=== PATIENT | male | born 1990 | race Caucasian/White ===

== ENCOUNTER 2024-05-08 10:42 | Outpatient (REF) | payer OTHER, SELFPAY | END 2024-05-08 10:43 | disposition home or self-care (01) | LOC: HO.HOSX 10:42 | PROVIDERS: Visit Provider Orthopaedic Surgery | DX: M79.661 Pain in right lower leg (principal) | CPT/HCPCS: 73590; 99202 ==

== ENCOUNTER 2024-05-08 14:57 | Outpatient (AMB) | payer OTHER, SELFPAY ==
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
[2024-05-08 15:12] VITALS: BMI 31.6
== END 2024-05-08 15:25 | disposition home or self-care (01) ==
PROVIDERS: Visit Provider Orthopaedic Surgery
DX: M79.661 Pain in right lower leg (principal)
CPT/HCPCS: 99203; G2211

== ENCOUNTER 2024-07-09 08:42 | Outpatient (REF) | payer OTHER, SELFPAY ==
--- NOTE | ~2024-07-09 | XR_ITS ---
EXAMINATION: XR TIBIA FIBULA 2 VIEWS RIGHT HISTORY: S82.201A - Unspecified fracture of shaft of right tibia, initial encounter COMPARISON: Comparison is made with the prior examination dated 05/08/2024. FINDINGS: AP and lateral views of the right tibia and fibula are submitted. Osseous mineralization is normal. Again seen is an intramedullary garima in the tibia maintaining the previously seen and a fracture of the midshaft in anatomic alignment. The fracture line is less visible. There is also slightly greater callus formation noted, consistent with healing. The visualized knee and ankle joint spaces are preserved. The soft tissues are unremarkable. XR/XR tibia fibula RT 2V IMPRESSION: Healing internally fixed fracture of the midshaft of the tibia. Electronically signed by: Noah Reilly MD 07/10/2024 03:47 PM DANIAL
--- OUTSIDE RECORDS SUMMARY | 2024-07-10 09:24 | XMS_ITS ---
Author [facility] Address [address] [place] [address] Care Team Providers Care Branding Machine Tender Name Role Phone Danial Garcia Primary Care Provider Danial Garcia Unavailable Unavailable REASON FOR VISIT Meds MEDICATIONS Medication SIG (Take, Route, Frequency, Duration) Notes Start Date End Date Status Vitamin D3 125 MCG (5000 UT) 1 capsule Orally Once a day for 90 Days 04/30/2024 Active Encounters Encounter Location Date Provider Diagnosis [facility] [address] [place] [address] 05/02/2024 Danial Garcia Vitamin D deficiency E55.9 ASSESSMENTS Encounter Date Diagnosis Assessment Notes Treatment Notes Treatment Clinical Notes 05/02/2024 Vitamin D deficiency (ICD-10 - E55.9) PLAN OF TREATMENT Medication Medication Name Sig Start Date Stop Date Notes Vitamin D3 125 MCG (5000 UT) 1 capsule O rally Once a day for 90 Days 04/30/2024 Next Appt Details Provider Name:Danial caceres, 07/15/2024 04:45:00 PM, [address] [place] [address], [phone],
--- OUTSIDE RECORDS SUMMARY | 2024-07-10 09:24 | XMS_ITS ---
Author Organization [facility] Address [address] [place] [address] Care Team Providers Care Tare Worker Name Role Phone Danial Garcia Primary Care [...] days 10/07/2022 Active Vitamin D3 1.25 MG (25211 UT) 1 capsule Orally Once a day for 90 Days 04/30/2024 Active Ipratropium [place]rtle 0.06 % 2 sprays in e ach [...] Encounters Encounter Location Date Provider Diagnosis [facility] [address] 04/30/2024 Danial Garcia Annual physical exam Z00.00 [...] system. There are likely to be multiple teradata solution architect inaccuracies despite chart review. PLAN OF TREATMENT Medication Medication Name Sig Start Date Stop Date Notes Vitamin D3 1.25 MG (54070 UT) 1 capsule Orally Once a day for 90 Days 04/30/2024 Debrox 6.5 % 5 drops into affecte d ear Otic Twice a day for 7 days 04/30/2024 Treatment Notes Assessment Notes Other This chart has been transcribed by a computerized dictation system. There are likely to be multiple teradata solution architect inaccuracies despite chart review. Next Appt Details Follow Up: 3 Months, Monday next week, Reason: Follow-up,Ear irrigation Provider Name:Danial Pena Watson caceres, 07/15/2024 04:45:00 PM, [address] [place] [address], [phone], Progress Notes * Examination Category Sub-Category Detail Notes General Examination GENERAL APPEARANCE: in no ac kot[place] distress, well developed, well nourished HEAD: normocephalic, [...]
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
--- OUTSIDE RECORDS SUMMARY | 2024-07-10 09:24 | XMS_ITS ---
Author Organization Jose Perdue Address [address] [place] [address] Care Team Providers Care Assistant Editor Name Role Phone Danial Garcia Primary Care Provider Danial Garcia Unavailable Unavailable REASON FOR VISIT PT Order Encounters Encounter Location Date Provider Diagnosis Jose Perdue [address] [place] [address] 02/23/20 24 Danial Garcia PLAN OF TREATMENT Next Appt Details Provider Name:Danial caceres, 07/15/2024 04:45:00 PM, [address] [place], [address],
--- OUTSIDE RECORDS SUMMARY | 2024-07-10 09:24 | XMS_ITS | Clinical Summary ---
Author Organization [facility] [employer] [facility] Address [address] [place] [address] Care Team Providers Care Surveillance Systems Engineer Name Role Phone Pcp, No Primary Care Provider [phone] Social History Tobacco Use Types Packs/Day Years [...] Adults 18 yrs or above (or HM Modifier)([facility]) 2006 Hepatitis C Virus Infection in Adolescents and Adults: Screening (or Modifier) ([facility]) 2006 SDOH Screening Reminder: Ursula ually for all adults ([facility]) 2006 Tobacco Smoking Cessation: i n Adults excluding Women: Behavioral and Pharmacotherapy Interventions ([facility]) 2006 DTaP/Tdap/Td Vaccines ([facility]) (1 - Tdap) 2007 Lipid Screening: Once for Me n aged 20 to 35 yrs ([facility]) 2008 Flu Vaccination: Yearly for ages 18mos through 64 years (or Modifier)([facility]) 01/11/2024 COVID-19 Vaccine Screening: Initial Series and Booster Status ([facility]) ( - 2023- season) 2024 Lipid Screening: Every 5 yrs for Men aged 35+ (or HM Modifier) ([facility]) 2024 Zoster/Shingles Vaccine Seri es Screening: Adults aged 18+ yrs (or HM Modifiers)([facility]) (1 of 2) 2038 Pneumococcal Vaccination Scr eening: Pts 0-19 & 19-64 yrs of age ([facility]) Aged Out No longer eligible based on patient's age to complete this topic Medical Devices Not on file Insurance [facility] PL[facility] Care Teams Surveillance Systems Engineer Relationship Specialty Start Date End Date Pcp, No PCP - General Family Medicine 03/03/22
== END 2024-07-09 08:43 | disposition home or self-care (01) ==
LOC: HO.HOSX 08:42
PROVIDERS: Visit Provider Orthopaedic Surgery
DX: S82.201A Unspecified fracture of shaft of right tibia, initial encounter for closed fracture (principal)
CPT/HCPCS: 73590; 99212

== ENCOUNTER 2024-07-09 15:04 | Outpatient (AMB) | payer OTHER, SELFPAY ==
--- NOTE | 2024-07-09 15:16 | MHC.OFFVIS ---
Vital Signs 07/09/24 15:20 Height 5 ft 8 in Weight 208 lb BMI 31.6 Intake Visit Reasons: OV Rt tibia IMN 02/04/[address] [place] Intake Note: Justin is a 34 year old male who presents today for follow up after undergoing a right tibia IMN on 02/04/24 in [place]. He reports minimal discomfort in his right ankle. He denies any right lower leg pain. He has been weight-bearing as tolerated. He does not take any medicines for his discomfort. Allergies No Known Allergies Allergy (Verified 07/09/24 15:25) Medication List - Last Reconciled 07/09/24 by Ricardo Gibson MD fluoxetine 10 mg PO DAILY [facility] Social History Alcohol intake: never Patient Tobacco Use Status: Never used Tobacco Current occupational status: employed Current occupation: Employment business support coordinator Physical Exam Vital Signs: BMI result Body Mass Index 31.6 Extrem Other: Right lower extremity examination shows that the surgical incisions are well healed, no erythema, no focal tenderness over his tibia, no discomfort with range of motion of his knee or ankle Results Reviewed Results Reviewed: X-rays of the patient's right tibia and fibula taken today show cortical bone crossing the previous fracture site, no evidence of hardware loosening Assessment & Plan Assessment & Plan (1) Right tibial fracture: Code(s): S82.201A - Unspecified fracture of shaft of right tibia, initial encounter for closed fracture Category: Medical Plan Mr. العلي continues to do well after undergoing intramedullary nailing of his right tibia fracture on 02/04/2024. At this point he is clinically and radiographically healed. He can gradually progress to activities as tolerated. He will follow up with me on an as-needed basis should any questions or concerns arise. I spent 21 minutes in reviewing the patient's records and imaging studies, seeing the patient and documenting in the medical record. Orders: Orders XR tibia fibula RT 2V Today S82.201A - Unspecified fracture of shaft of right tibia, initial encounter for closed fracture Coding Level of Care Code Est Pt Level 3 (66542) Complex EM visit Add On G2211 Diagnoses Right tibial fracture S82.201A
[2024-07-09 15:20] VITALS: BMI 31.6
--- OUTSIDE RECORDS SUMMARY | 2024-07-09 16:03 | XMS_ITS ---
Author Organization [facility] Address [address] [place] [address] Care Team Providers Care Organizational Research Consultant Name Role Phone Danial Garcia Primary Care Provider [phone] Danial Garcia Unavailable Unavailable REASON FOR VISIT PT Order Encounters Encounter Location Date Provider Diagnosis [facility] [address] [place] [address] 02/23/20 24 Danial Garcia PLAN OF TREATMENT Next Appt Details Provider Name:Danial caceres, 07/15/2024 04:45:00 PM, [address] [place], [address],
--- OUTSIDE RECORDS SUMMARY | 2024-07-09 16:03 | XMS_ITS | Clinical Summary ---
Author Organization [facility]] lin Address [address] [place] [address] Care Team Providers Care Assembly Line Inspector Name Role Phone Pcp, No Primary Care Provider [phone] Social History Tobacco Use Types Packs/Day Years Used Date Smoking Tobacco: Never Assessed Sex and Gender Information Value Date Recorded Sex Assigned at Not on file Legal Sex Male 8:12 AM EST Gender Identity Not on file Sexual Orientation Not on file Plan of Treatment Health Maintenance Due Date Last Done Comments Depression: Screening Annual ly using PHQ-2/9 in Adults 18 yrs or above (or HM Modifier)([facility]) 2006 Hepatitis C Virus Infection in Adolescents and Adults: Screening (or Modifier) ([facility]) 2006 SDOH Screening Reminder: Ursula ually for all adults ([facility]) 2006 Tobacco Smoking Cessation: i n Adults excluding Women: Behavioral and Pharmacotherapy Interventions ([facility]) 2006 DTaP/Tdap/Td Vaccines ([facility]) (1 - Tdap) 2007 Lipid Screening: Once for Me n aged 20 to 35 yrs ([facility]) 2008 Flu Vaccination: Yearly for ages 18mos through 64 years (or Modifier)([facility]) 01/11/2024 COVID-19 Vaccine Screening: Initial Series and Booster Status ([facility]) ( - 2023- season) 2024 Lipid Screening: Every 5 yrs for Men aged 35+ (or HM Modifier) ([facility]) 2024 Zoster/Shingles Vaccine Seri es Screening: Adults aged 18+ yrs (or HM Modifiers)([facility]) (1 of 2) 2038 Pneumococcal Vaccination Scr eening: Pts 0-19 & 19-64 yrs of age ([facility]) Aged Out No longer eligible based on patient's age to complete this topic Medical Devices Not on file Insurance [facility] PL[facility] Care Teams Assembly Line Inspector Relationship Specialty Start Date End Date Pcp, No PCP - General Family Medicine 03/03/22
--- OUTSIDE RECORDS SUMMARY | 2024-07-09 16:03 | XMS_ITS ---
Author [facility] Address [address] [place] [address] Care Team Providers Care Shutdown Coordinator Name Role Phone Danial Garcia Primary Care Provider Danial Garcia Unavailable Unavailable REASON FOR VISIT (IN OFFICE), Annual Complete Physical Exam MEDICATIONS Medication SIG (Take, Route, Frequency, Duration) Notes Start Date End Date Status FLUoxetine HCl 10 MG TAKE 1 CAPSULE BY M OUT EVERY DAY for 90 Active Sucralfate 1 GM/10ML 10 ml on an empty s tomach Orally Twice a day for 14 days 10/07/2022 Active Vitamin D3 1.25 MG (23684 UT) 1 capsule Orally Once a day for 90 Days 04/30/2024 Active Ipratropium [place] 0.06 % 2 sprays in e ach nostril Nasally Three times a day for 30 days 09/20/2021 Active LORazepam 1 MG 1 tablet as needed O rally Once a day Active Famotidine 40 MG 1 tablet at bedtime Orally Once a day Active Debrox 6.5 % 5 drops into affecte d ear Otic Twice a day for 7 days 04/30/2024 Active Pantoprazole Sodium 40 MG 1 tablet Orall y Once a day Active VITAL SIGNS Height 68 in 04/30/2024 Weight 208 lbs 04/30/2024 BMI 31.62 kg/m2 04/30/2024 Blood pressure systolic 124 mm Hg 04/30/20 24 Blood pressure diastolic 72 mm Hg 024 Heart Rate 78 /min 04/30/2024 Encounters Encounter Location Date Provider Diagnosis [facility] [address] 04/30/2024 Danial Garcia Annual physical exam Z00.00 ; Vitamin D deficiency E55.9 and Bilateral impacted cerumen H61.23 ASSESSMENTS Encounter Date Diagnosis Assessment Notes Treatment Notes Treatment Clinical Notes 04/30/2024 Annual physical exam (ICD-10 - Z00.00) 04/30/2024 Vitamin D deficiency (ICD-10 - E55.9) 04/30/2024 Bilateral impacted cerumen (ICD-10 - H61.23) 04/30/2024 Other This chart has been transcribed by a computerized dictation system. There are likely to be multiple patternmaker wood inaccuracies despite chart review. PLAN OF TREATMENT Medication Medication Name Sig Start Date Stop Date Notes Vitamin D3 1.25 MG (75921 UT) 1 capsule Orally Once a day for 90 Days 04/30/2024 Debrox 6.5 % 5 drops into affecte d ear Otic Twice a day for 7 days 04/30/2024 Treatment Notes Assessment Notes Other This chart has been transcribed by a computerized dictation system. There are likely to be multiple patternmaker wood inaccuracies despite chart review. Next Appt Details Follow Up: 3 Months, Monday next week, Reason: Follow-up,Ear irrigation Provider Name:Danial Pena Watson caceres, 07/15/2024 04:45:00 PM, [address] [place] [address], [phone], Progress Notes * Examination Category Sub-Category Detail Notes General Examination GENERAL APPEARANCE: in no ac nooksack distress, well developed, well nourished HEAD: normocephalic, atrau matic EYES: pupils equal, round, reactive to light and accommodation EARS: Bilateral impacted c erumen NOSE: nares patent, no les ions, septum intact, clear discharge THROAT: clear, no erythema, uvula midline, no exudate NECK/THYROID: neck supple, trachea midline, no thyromegaly, no carotid bruit HEART: no murmurs, regular rate and rhythm, S1, S2 normal LUNGS: clear to auscultatio n bilaterally ABDOMEN: soft, nontender, non distended, no organomegaly , bowel sounds present NEUROLOGIC: alert and oriented x 3, normal strength, tone and reflexes, sensory exam intact SKIN: no suspicious lesion s, warm and dry EXTREMITIES: no clubbing, cyanosi s, or edema PERIPHERAL PULSES: normal, 2+ throughou t MUSCULOSKELETAL: normal, full range o f motion LYMPH NODES: no cervical, axillar y, supraclavicular or inguinal adenopathy PSYCH: cognitive function i ntact, mood/affect full range ORAL CAVITY: mucosa moist, no les ions, palate normal, tongue in midline, well papillated History and Physical Notes * HPI (History of Present Illness) Category Sub-Category Detail Notes Depression Screening PHQ-9 Little inte rest or pleasure in doing things: Not at all Feeling down, depressed, or hopeless: No t at all Trouble falling or staying asleep, or sl eeping too much: Several days Feeling tired or having little energy: S everal days Poor appetite or overeating: Not at all Feeling bad about yourself o r that you are a failure, or have let yourself or your family down: Not at all Trouble concentrating on thi ngs, such as reading the newspaper or watching television: Not at all Moving or speaking so slowly that other people could have noticed; or the opposite, being so fidgety or restless that you have been moving around a lot more than usual: Not at all Thoughts that you would be b cheryl off or of hurting yourself in some way: Not at all Total Score: 2 Interpretation: Minimal Depression
--- OUTSIDE RECORDS SUMMARY | 2024-07-09 16:03 | XMS_ITS ---
[facility] Address [address] [place] [address] Care Team Providers Care School Boat Driver Name Role Phone Danial Garcia Primary Care Provider [phone] Danial Garcia Unavailable Unavailable REASON FOR VISIT Meds MEDICATIONS Medication SIG (Take, Route, Frequency, Duration) Notes Start Date End Date Status Vitamin D3 125 MCG (5000 UT) 1 capsule Orally Once a day for 90 Days 04/30/2024 Active Encounters Encounter Location Date Provider [facility] [address] [place] [address] 05/02/2024 Danial Garcia Vitamin D deficiency E55.9 ASSESSMENTS Encounter Date Diagnosis Assessment Notes Treatment Notes Treatment Clinical Notes 05/02/2024 Vitamin D deficiency (ICD-10 - E55.9) PLAN OF TREATMENT Medication Medication Name Sig Start Date Stop Date Notes Vitamin D3 125 MCG (5000 UT) 1 capsule O rally Once a day for 90 Days 04/30/2024 Next Appt Details Provider Name:Danial caceres, 07/15/2024 04:45:00 PM, [address] [place] [address], [phone],
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
== END 2024-07-09 15:42 | disposition home or self-care (01) ==
PROVIDERS: Visit Provider Orthopaedic Surgery
DX: S82.201D Unspecified fracture of shaft of right tibia, subsequent encounter for closed fracture with routine healing (principal)
CPT/HCPCS: 99213

== ENCOUNTER → 2024-07-09 15:18 | Outpatient (BNV) | payer OTHER, SELFPAY | PROVIDERS: Visit Provider Radiology Diagnostic Radiology | DX: S82.201D Unspecified fracture of shaft of right tibia, subsequent encounter for closed fracture with routine healing (principal) | CPT/HCPCS: 73590 ==